=== PATIENT | male | born 1970 | race Caucasian/White ===

== ENCOUNTER 2018-09-10 10:06 | Inpatient (IN) ==
--- NOTE | 2018-09-10 18:18 | P.HP ---
History of Present Illness Primary Care Physician: Ambrosio Zavala MD Chief Complaint: Heart palpitation History of Present Illness: 48-year-old man with no significant past medical history went to [facility] for evaluation of 24-hour history of new onset of heart palpitations and chest tightness. Patient states after work yesterday he started noticing rapid heart racing and palpitations associated with chest tightness without any marylou chest pain. He was seen by his PCP who advised patient to seek medical attention to the ED. He denies any prior history. He also denies any trauma, tobacco use or illicit drug intake. He has no GI bleed. While in the ED, patient was found to be in A. fib with RVR for which he was started on Cardizem drip and transferred to [facility] for further evaluation. Inpatient Certification: I certify that the inpatient services were ordered in accordance with Medicare regulations governing the order. This includes certification that hospital inpatient services are reasonable and necessary and in the case of services not specified as inpatient-only under 42 CFR 419.22(n), that they are appropriately provided as inpatient services in accordance to with the 2-midnight benchmark under 43 CFR 412.3(e) Estimated Total Length of Stay (Days): 2 Plans for Post Hospital Care: Not yet determined Review of Systems All other systems reviewed negative except as stated in HPI PMFSH - History History Provided By: Patient - Medical History Medical History: Medical History (Last Reviewed 09/10/18 @ 10:37 by Jerry Prieto MD) Hx of tear of ACL (anterior cruciate ligament) Patient denies medical problems - Surgical History Surgical History: Surgical History (Last Reviewed 09/10/18 @ 10:37 by Jerry Priteo MD) Hx of knee surgery - Family History Family History: Family History (Last Updated 09/10/18 @ 18:59 by Garett Peterson MD) Other Hypertension - Tobacco History Smoking Status: Never smoker - Alcohol History How Often Do You Have a Drink Containing Alcohol: Monthly or less - Substance Use History Substance History: No History of Abuse Medications and Allergies Allergies Allergy/AdvReac Type Severity Reaction Status Date / Time No Known Allergies Allergy Verified 09/10/18 10:26 Home Medications Medication Instructions Recorded Confirmed Type No Known Home Medications 09/10/18 09/10/18 History Exam Narrative: GENERAL: NAD SKIN: Warm and dry. HEAD: Atraumatic. Normocephalic. EYES: Pupils equal and round. No scleral icterus. No injection or drainage. ENT: No nasal bleeding or discharge. Mucous membranes pink and moist. NECK: Trachea midline. No JVD. CARDIOVASCULAR: Irregular regular rate and rhythm. No heart murmur RESPIRATORY: No accessory muscle use. Clear to auscultation. Breath sounds equal bilaterally. GASTROINTESTINAL: Abdomen soft, non-tender, nondistended. Hepatic and splenic margins not palpable. MUSCULOSKELETAL: Extremities without clubbing, cyanosis, or edema. No obvious deformities. NEUROLOGICAL: Awake and alert. No obvious cranial nerve deficits. Motor grossly within normal limits. Five out of 5 muscle strength in the arms and legs. Normal speech. PSYCHIATRIC: Appropriate mood and affect; insight and judgment normal. Caprini VTE Risk Assessment Caprini VTE Risk Assessment: No/Low Risk (score <= 1) Caprini Risk Assessment Model: Point Value = 1 Point Value = 2 Point Value = 3 Point Value = 5 Age 41-60 Minor surgery BMI > 25 kg/m2 Swollen legs Varicose veins or History of unexplained or recurrent spontaneous Oral contraceptives or hormone replacement Sepsis (< 1 month) Serious lung disease, including pneumonia (< 1 month) Abnormal pulmonary function Acute myocardial infarction Congestive heart failure (< 1 month) History of inflammatory bowel disease Medical patient at bed rest Age 61-74 Arthroscopic surgery Major open surgery (> 45 min) Laparoscopic surgery (> 45 min) Malignancy Confined to bed (> 72 hours) Immobilizing plaster cast Central venous access Age >= 75 History of VTE Family history of VTE Factor V Leiden Prothrombin [id number] Lupus anticoagulant Anticardiolipin antibodies Elevated serum homocysteine Heparin-induced thrombocytopenia Other congenital or acquired thrombophilia Stroke (< 1 month) Elective arthroplasty Hip, pelvis, or leg fracture Acute spinal cord injury (< 1 month) Prophylaxis Regimen: Total Risk Factor Score Risk Level Prophylaxis Regimen 0-1 Low Early ambulation 2 Moderate Order ONE of the following: *Sequential Compression Device (SCD) *Heparin 5000 units SQ BID 3-4 Higher Order ONE of the following medications: *Heparin 5000 units SQ TID *Enoxaparin/Lovenox 40 mg SQ daily (WT < 150 kg, CrCl > 30 mL/min) *Enoxaparin/Lovenox 30 mg SQ daily (WT < 150 kg, CrCl > 10-29 mL/min) *Enoxaparin/Lovenox 30 mg SQ BID (WT < 150 kg, CrCl > 30 mL/min) AND/OR *Sequential Compression Device (SCD) 5 or more Highest Order ONE of the following medications: *Heparin 5000 units SQ TID (Preferred with Epidurals) *Enoxaparin/Lovenox 40 mg SQ daily (WT < 150 kg, CrCl > 30 mL/min) *Enoxaparin/Lovenox 30 mg SQ daily (WT < 150 kg, CrCl > 10-29 mL/min) *Enoxaparin/Lovenox 30 mg SQ BID (WT < 150 kg, CrCl > 30 mL/min) AND *Sequential Compression Device (SCD) Assessment and Plan - Plan 48-year-old man with New onset atrial fibrillation with RVR Currently on Cardizem drip Continue with ACS rule out per protocol with serial cardiac enzyme and EKGs Check 2D echo, lipid profile Rule out thyroid dysfunction with TSH and free T4 Consult cardiology for further evaluation Will start aspirin 81 mg daily DVT prophylaxis: Lovenox
[2018-09-10 20:27] LABS: Albumin 3.6 g/dL (3.4-5.0); Anion Gap 6 meq/L (5-15); Aspartate Aminotransferase 33 U/L (15-37); Blood Urea Nitrogen 13 mg/dL (7-18); Calcium 8.1 mg/dL (8.5-10.1); Carbon Dioxide 25.7 meq/L (21.0-32.0); Chloride 105 meq/L (98-107); Glomerular Filtration Rate 80 mL/min (>89); Glucose,Random 105 mg/dL (74-106); Magnesium 2.1 mg/dL (1.5-2.5); Potassium 3.6 meq/L (3.5-5.1); Sodium 137 meq/L (136-145)
[2018-09-10 20:29] LABS: Alanine Aminotransferase 42 U/L (12-78); T4 (Thyroxine) 5.9 mcg/dL (4.5-12.1)
[2018-09-10 20:38] LABS: Alkaline Phosphatase 78 U/L (45-117); Creatine Kinase 178 U/L (39-308); Total Protein 6.9 g/dL (6.4-8.2)
--- NOTE | 2018-09-10 21:14 | ECG ---
Date Performed: 09/10/2018 Time Performed: 19:42:41 PTAGE: 48 years EKG: ATRIAL FIBRILLATION POSSIBLE RIGHT VENTRICULAR CONDUCTION DELAY ABNORMAL RHYTHM ECG Since t he PREVIOUS TRACING , no significant change noted DOCTOR: Raoul Low Interpretating Date/Time 09/10/2018 21:13:45
[2018-09-10] MEDS ORDERED: dilTIAZem Inj 125 MG in Sodium Chlor 0.9% Inj 100 ML IV.CONT PRN (23:00)
[2018-09-11 08:09] LABS: Hematocrit 47.6 % (39.0-51.0); Hemoglobin 16.1 gm/dL (13.0-17.0); Mean Corpuscular HGB Conc 33.7 % (32.0-36.0); Mean Corpuscular Hemoglobin 30.3 pg (27.0-34.0); Mean Corpuscular Volume 89.8 fL (80.0-100.0); Mean Platelet Volume 9.3 fL (7.0-11.0); Platelet Count 216 th/mm3 (150-450); Red Cell Distribution Width 13.8 % (11.6-17.2); White Blood Count 7.4 th/mm3 (4.0-11.0)
[2018-09-11 08:35] LABS: Cholesterol 217 mg/dL (120-200); Triglycerides 256 mg/dL (42-150)
[2018-09-11 08:38] LABS: Chol/HDL Ratio 5.16 Ratio; Creatine Kinase 155 U/L (39-308); LDL Cholesterol,Calculated 124 mg/dL (0-99)
[2018-09-11] MEDS ORDERED: Enoxaparin Inj 40 MG/0.4 ML Syringe SQ SCH (09:00)
--- NOTE | 2018-09-11 10:58 | P.PNIM ---
Subjective Interval history: Says he feeling alright. Still with palpitations upon standing. Denies any chest pain. Physical Exam Vital signs: Vital Signs 09/10/18 19:54 09/10/18 20:00 09/10/18 23:53 Temperature 97.2 F L Pulse Rate 97 H 82 102 H Respiratory Rate 17 Blood Pressure 122/80 Pulse Oximetry 96 09/11/18 00:00 09/11/18 03:51 09/11/18 04:00 Temperature 98.0 F 97.8 F Pulse Rate 97 H 96 H 92 H Respiratory Rate 17 17 Blood Pressure 146/66 H 115/71 Pulse Oximetry 94 L 98 Intake & Output 09/10/18 09/11/18 09/11/18 18:59 06:59 18:59 Intake Total 0 / 0 Balance 0 / 0 Weight 108.1 kg Intake: Oral 0 / 0 Other: # Voids 1 # Bowel Movements 1 Weight On Admission 107.2 kg Narrative: GENERAL: Patient lying in bed. Appears comfortable. Oriented x3. SKIN: Warm and dry. HEAD: Normocephalic. EYES: No scleral icterus. No injection or drainage. NECK: Supple, trachea midline. No JVD. CARDIOVASCULAR: Irregularly irregular rhythm without murmurs, gallops, or rubs. RESPIRATORY: Breath sounds equal bilaterally. No accessory muscle use. GASTROINTESTINAL: Abdomen soft, non-tender, nondistended. MUSCULOSKELETAL: No cyanosis, or edema. BACK: Nontender without obvious deformity. No CVA tenderness. Results - Labs CBC & Chem 7: 09/11/18 06:15 09/10/18 19:15 Laboratory Results - last 24 hr 09/10/18 09/11/18 09/11/18 19:15 06:15 06:15 WBC 7.4 RBC 5.30 Hgb 16.1 Hct 47.6 MCV 89.8 MCH 30.3 MCHC 33.7 RDW 13.8 Plt Count 216 MPV 9.3 Sodium 137 Potassium 3.6 D Chloride 105 Carbon Dioxide 25.7 Anion Gap 6 BUN 13 Creatinine 1.00 Estimated GFR 80 L Random Glucose 105 Calcium 8.1 L Magnesium 2.1 Total Bilirubin 0.4 AST 33 ALT 42 Alkaline Phosphatase 78 Total Creatine Kinase 178 155 Troponin I Less than 0.02 L Less than 0.02 L Total Protein 6.9 D Albumin 3.6 Triglycerides 256 H Cholesterol 217 H LDL Cholesterol, Calc 124 H HDL Cholesterol 42.0 Cholesterol/HDL Ratio 5.16 TSH 2.480 Thyroxine (T4) 5.9 Assessment and Plan - Plan 48-year-old man with //New onset atrial fibrillation with RVR Currently on Cardizem drip Continue with ACS rule out per protocol with serial cardiac enzyme and EKGs Check 2D echo, lipid profile Rule out thyroid dysfunction with TSH and free T4 Consult cardiology for further evaluation Will start aspirin 81 mg daily = 09/11. Follow-up echocardiogram. Patient's heart rate between 90s and 130s. Have discussed with nursing and will increase drip rate on Cardizem to 10. Follow-up cardiology recommendations. Follow-up echocardiogram. Appreciate assistance. DVT prophylaxis: Lovenox Discussed Condition With: Patient, nurse. Discharge Planning: Pending stability in heart rate and cardiology clearance.
[2018-09-11] MEDS ORDERED: Sodium Chlor 0.9% Inj 500 ML IV.SIG SCH (11:00)
[2018-09-11] MEDS: Metoprolol Tartrate 50 MG Tablet PO SCH ×2 (11:17→20:37)
[2018-09-11 11:49] LABS: Amphetamine Screen,Urine Neg (Neg); Barbiturate Screen,Urine Neg (Neg); Cannabinoid Screen,Urine Neg (Neg); Cocaine Screen,Urine Neg (Neg)
[2018-09-11 11:50] LABS: Opiate Screen,Urine Neg (Neg)
--- NOTE | 2018-09-11 14:55 | P.CONCA ---
History of Present Illness Service: Cardiology Consult date: 09/11/18 Requesting Physician: Garett Peterson Reason for Consult: New onset atrial fibrillation with RVR Primary Care Provider: Ambrosio Zavala MD Chief Complaint: Heart palpitation History of Present Illness: This is a very pleasant 48-year-old male with no significant past medical history. On Sunday, while working, he developed palpitations with lightheadedness, mild shortness of breath and chest tightness. He worked the full day and went home to relax. He stated that the palpitations never went away but did get a little better. He stated, that he went to bed and when he woke up, he could feel his heart racing. He went to his PCP yesterday and was referred to the [facility] for further evaluation. While in the Emergency Department, he was found to be in atrial fibrillation with RVR and was started on a Cardizem drip and transferred here. He currently denies any CP, pressure, palpitations, dizziness, edema or SOB. Review of Systems All other systems reviewed negative except as stated in HPI PMFSH - History History Provided By: Patient - Medical History Medical History: Medical History (Last Reviewed 09/10/18 @ 10:37 by Jerry Prieto MD) Hx of tear of ACL (anterior cruciate ligament) Patient denies medical problems - Surgical History Surgical History: Surgical History (Last Reviewed 09/10/18 @ 10:37 by Jerry Prieto MD) Hx of knee surgery - Family History Family History: Family History (Last Updated 09/10/18 @ 18:59 by Garett Peterson MD) Other Hypertension - Tobacco History Second Hand Smoke Exposure: No Tobacco Use In Past 30 Days: No Smoking Status: Never smoker - Alcohol History How Often Do You Have a Drink Containing Alcohol: Monthly or less - Substance Use History Substance History: No History of Abuse - Immunization History Tetanus Immunization: >5 Years Hx Influenza Vaccine This Season: No Medications and Allergies Allergies Allergy/AdvReac Type Severity Reaction Status Date / Time No Known Allergies Allergy Verified 09/10/18 10:26 Home Medications Medication Instructions Recorded Confirmed Type No Known Home Medications 09/10/18 09/10/18 History Active Medications: Active Medications Albuterol (Duoneb Neb (Prn)) 1 ampul NEB Q2HR NEB PRN PRN Reason: SHORTNESS OF BREATH Aspirin (Aspirin Chew) 81 mg PO DAILY [facility] Last Admin: 09/11/18 10:44 Dose: 81 mg Enoxaparin Sodium (Lovenox Inj) 40 mg SQ Q24H [facility] Last Admin: 09/11/18 08:22 Dose: 40 mg Metoprolol Tartrate (Lopressor) 50 mg PO BID [facility] Last Admin: 09/11/18 11:17 Dose: 50 mg Sodium Chloride (Ns Flush) 2 ml IV.FLUSH PRN PRN PRN Reason: FLUSH AFTER USING IV ACCESS Sodium Chloride (Ns Flush) 2 ml IV.FLUSH BID [facility] Last Admin: 09/11/18 08:23 Dose: Not Given Exam Vital signs: Vital Signs 09/10/18 19:54 09/10/18 20:00 09/10/18 23:53 Temperature 97.2 F L Pulse Rate 97 H 82 102 H Respiratory Rate 17 Blood Pressure 122/80 Pulse Oximetry 96 09/11/18 00:00 09/11/18 03:51 09/11/18 04:00 Temperature 98.0 F 97.8 F Pulse Rate 97 H 96 H 92 H Respiratory Rate 17 17 Blood Pressure 146/66 H 115/71 Pulse Oximetry 94 L 98 09/11/18 08:00 09/11/18 11:30 09/11/18 12:00 Temperature 98.2 F Pulse Rate 74 75 66 Respiratory Rate 20 Blood Pressure 100/73 101/67 110/67 Pulse Oximetry 95 Intake & Output 09/10/18 09/11/18 09/11/18 18:59 06:59 18:59 Intake Total 0 / 0 500 / 500 Balance 0 / 0 500 / 500 Weight 108.1 kg Intake: IV 500 / 500 NS Inj 500 ML @ 1000 mls/hr IV. 500 / 500 SIG BOLUS [facility] Rx#:[id number] Oral 0 / 0 Other: # Voids 1 # Bowel Movements 1 Weight On Admission 107.2 kg - Constitutional no acute distress - Routine HEENT Exam Head: Present: normocephalic Eye: Present: PERRL ENT: Present: mucous membranes moist - Routine Neck Exam Present: full ROM - Routine Respiratory Exam Present: CTA bilaterally - Routine Cardiovascular Exam Present: S1, S2, tachycardia, irregular rhythm - Routine Abdominal Exam Present: normoactive bowel sounds - Routine Extremities Exam Present: full ROM, pulses intact, normal capillary refill. Absent: cyanosis, clubbing, edema - Routine Skin Exam Present: intact - Routine Neurological Exam Present: oriented X3 Results 09/11/18 06:15 09/10/18 19:15 Cardiac Enzymes 09/10/18 09/11/18 Range/Units 19:15 06:15 AST 33 (15-37) U/L Troponin I Less than 0.02 L Less than 0.02 L (0.02-0.05) ng/mL Lipids 09/11/18 Range/Units 06:15 Triglycerides 256 H (42-150) mg/dL Cholesterol 217 H (120-200) mg/dL HDL Cholesterol 42.0 (40.0-60.0) mg/dL Cholesterol/HDL Ratio 5.16 Ratio CBC 09/11/18 Range/Units 06:15 WBC 7.4 (4.0-11.0) th/mm3 RBC 5.30 (4.50-5.90) mil/mm3 Hgb 16.1 (13.0-17.0) gm/dL Hct 47.6 (39.0-51.0) % Plt Count 216 (150-450) th/mm3 Comprehensive Metabolic Panel 09/10/18 Range/Units 19:15 Sodium 137 (136-145) meq/L Potassium 3.6 D (3.5-5.1) meq/L Chloride 105 (98-107) meq/L Carbon Dioxide 25.7 (21.0-32.0) meq/L BUN 13 (7-18) mg/dL Creatinine 1.00 (0.60-1.30) mg/dL Calcium 8.1 L (8.5-10.1) mg/dL AST 33 (15-37) U/L ALT 42 (12-78) U/L Alkaline Phosphatase 78 (45-117) U/L Total Protein 6.9 D (6.4-8.2) g/dL Albumin 3.6 (3.4-5.0) g/dL Intake and Output 09/10/18 09/11/18 09/11/18 22:59 06:59 14:59 Intake Total 0 / 0 500 / 500 Balance 0 / 0 500 / 500 Intake: IV 500 / 500 NS Inj 500 ML @ 1000 mls/hr IV. 500 / 500 SIG [facility] Rx#:[id number] Oral 0 / 0 Other: # Voids 1 # Bowel Movements 1 Weight 107.2 kg 108.1 kg Weight On Admission 107.2 kg Assessment and Plan - Assessment (1) New onset atrial fibrillation Code(s): I48.91 - Unspecified atrial fibrillation Status: Acute - Plan CHADVAS is 0, patient has new onset atrial fibrillation, we will switch patient over to Xarelto 20mg PO QD and D/C all other anticoagulation. Patient has hyperlipidemia, we will start patient on Pravastatin 40mg PO QD. We will obtain a 2D echo to evaluate LV function. Continue to monitor on telemetry. Continue rate control with metoprolol, add digoxin (BP low nl). Discussed treatment plan with patient and , at bedside. We will continue to monitor patient during hospitalization. The patient was seen and evaluated by Dr. Low who participated in care, management and decision making. - Attending Attestation Patient seen and examined. I reviewed and agree with the evaluation and plan as presented. Continue and titrate rate control. Start anticoagulation. Check echo. D/w pt and .
--- NOTE | 2018-09-11 17:57 | ECHRPT ---
Indication: Persistent atrial fibrillation CONCLUSIONS Normal left ventricular size and wall thickness. The left ventricular systolic function is normal wi th an estimated ejection fraction in the range of 60-65%. Left ventricular diastolic function parameters a re normal. BP: / HR: Rhythm: Sinus MEASUREMENTS (Male / Female) Normal Values Technical Quality:Fair 2D ECHO LV Diastolic Diameter PLAX 4.3 cm 4.2 - 5.9 / 3.9 - 5.3 cm LV Systolic Diameter PLAX 3.1 cm IVS Diastolic Thickness 1.1 cm 0.6 - 1.0 / 0.6 - 0.9 cm LVPW Diastolic Thickness 1.1 cm 0.6 - 1.0 / 0.6 - 0.9 cm LV Relative Wall Thickness 0.5 LVOT Diameter 2.1 cm M-MODE Aortic Root Diameter MM 3.3 cm LA Systolic Diameter MM 3.2 cm LA Ao Ratio MM 1.0 AV Cusp Separation MM 1.6 cm DOPPLER AV Peak Velocity 107.0 cm/s AV Peak Gradient 4.6 mmHg LVOT Peak Velocity 77.5 cm/s LVOT Peak Gradient 2.4 mmHg AV Area Cont Eq pk 2.5 cm LV E' Septal Velocity 1.2 cm/s PV Peak Velocity 86.9 cm/s PV Peak Gradient 3.0 mmHg FINDINGS LEFT VENTRICLE Normal left ventricular size and wall thickness. The left ventricular systolic function is normal wi th an estimated ejection fraction in the range of 60-65%. Left ventricular diastolic function parameters a re normal. RIGHT VENTRICLE Normal right ventricular size and systolic function. LEFT ATRIUM The left atrial size is normal. RIGHT ATRIUM The right atrial size is normal. ATRIAL SEPTUM Normal atrial septal thickness without atrial level shunting by limited color doppler interrogation. AORTA The aortic root and proximal ascending aorta are normal in size on limited imaging. MITRAL VALVE Structurally normal mitral valve. No mitral valve stenosis or regurgitation. AORTIC VALVE Trileaflet aortic valve. No aortic valve stenosis or regurgitation. TRICUSPID VALVE Structurally normal tricuspid valve. No tricuspid valve stenosis or regurgitation. PULMONARY VALVE The pulmonary valve is not well visualized. VESSELS The inferior vena cava is normal in size. PERICARDIUM No pericardial effusion. Edmundo Singleton MD, FACC, FSCAI (Electronically Signed) Final Date:11 September 2018 17:56
[2018-09-11] MEDS: Digoxin 250 MCG Tablet PO SCH (18:04)
[2018-09-11] MEDS: Rivaroxaban 20 MG Tablet PO SCH (20:38)
[2018-09-12 01:17] VITALS: RESP 18
[2018-09-12 09:13] VITALS: O2SAT 99
[2018-09-12] MEDS: Rivaroxaban 20 MG Tablet PO SCH (09:23)
[2018-09-12] MEDS: Metoprolol Tartrate 50 MG Tablet PO SCH (09:23)
[2018-09-12] MEDS: Digoxin 250 MCG Tablet PO SCH (09:23)
--- NOTE | 2018-09-12 11:27 | P.PNCA ---
Subjective Interval history: Patient denies any CP, pressure, palpitations, dizziness or edema. Patient states that he is having mild SOB. Medications and Allergies Allergies Allergy/AdvReac Type Severity Reaction Status Date / Time No Known Allergies Allergy Verified 09/10/18 10:26 Home Medications Medication Instructions Recorded Confirmed Type No Known Home Medications 09/10/18 09/10/18 History Active Medications: Active Medications Albuterol (Duoneb Neb (Prn)) 1 ampul NEB Q2HR NEB PRN PRN Reason: SHORTNESS OF BREATH Digoxin (Lanoxin) 250 mcg PO DAILY [facility] Last Admin: 09/12/18 09:23 Dose: 250 mcg Metoprolol Tartrate (Lopressor) 50 mg PO BID [facility] Last Admin: 09/12/18 09:23 Dose: 50 mg Pravastatin Sodium (Pravachol) 40 mg PO DAILY [facility] Last Admin: 09/12/18 09:23 Dose: 40 mg Rivaroxaban (Xarelto) 20 mg PO DAILY [facility] Last Admin: 09/12/18 09:23 Dose: 20 mg Sodium Chloride (Ns Flush) 2 ml IV.FLUSH PRN PRN PRN Reason: FLUSH AFTER USING IV ACCESS Sodium Chloride (Ns Flush) 2 ml IV.FLUSH BID [facility] Last Admin: 09/12/18 09:24 Dose: 2 ml Physical Exam Vital signs: Vital Signs 09/11/18 11:30 09/11/18 12:00 09/11/18 16:00 Temperature 97.4 F L 97.5 F L Pulse Rate 75 79 102 H Respiratory Rate 20 20 Blood Pressure 101/67 106/65 141/79 H Pulse Oximetry 94 L 97 09/11/18 20:00 09/11/18 23:35 09/12/18 00:00 Temperature 97.7 F 97.7 F Pulse Rate 115 H 88 80 Respiratory Rate 18 18 Blood Pressure 128/82 122/92 H Pulse Oximetry 96 97 97 09/12/18 04:00 09/12/18 08:00 Temperature 97.9 F 98.1 F Pulse Rate 82 83 Respiratory Rate 18 18 Blood Pressure 107/87 129/83 Pulse Oximetry 95 99 Intake & Output 09/11/18 09/12/18 09/12/18 18:59 06:59 18:59 Intake Total 890 / 890 460 / 460 Balance 890 / 890 460 / 460 Weight 108.3 kg Intake: IV 650 / 650 Cardizem Inj 125 MG In NS Inj 150 / 150 100 ML @ 5 MG/HR 5 mls/hr IV. CONT TITRATE PRN Rx#:[id number] NS Inj 500 ML @ 1000 mls/hr IV. 500 / 500 SIG [facility] Rx#:[id number] Oral 240 / 240 460 / 460 Other: # Voids 2 2 # Bowel Movements 1 - Constitutional no acute distress - Routine HEENT Exam Head: Present: normocephalic Eye: Present: PERRL ENT: Present: mucous membranes moist - Routine Neck Exam Present: full ROM - Routine Respiratory Exam Present: CTA bilaterally - Routine Cardiovascular Exam Present: S1, S2, irregular rhythm - Routine Abdominal Exam Present: normoactive bowel sounds - Routine Extremities Exam Present: full ROM, pulses intact, normal capillary refill. Absent: cyanosis, clubbing, edema - Routine Skin Exam Present: intact - Routine Neurological Exam Present: oriented X3 - Detailed Neurological Exam: Coma Scale Eye Opening: Spontaneous Verbal Response: Oriented Motor Response: Obey commands [place] Coma Scale Total: 15 - Routine Psychiatric Exam Present: normal affect Results 09/11/18 06:15 09/10/18 19:15 Cardiac Enzymes 09/10/18 09/11/18 Range/Units 19:15 06:15 AST 33 (15-37) U/L Troponin I Less than 0.02 L Less than 0.02 L (0.02-0.05) ng/mL Lipids 09/11/18 Range/Units 06:15 Triglycerides 256 H (42-150) mg/dL Cholesterol 217 H (120-200) mg/dL HDL Cholesterol 42.0 (40.0-60.0) mg/dL Cholesterol/HDL Ratio 5.16 Ratio CBC 09/11/18 Range/Units 06:15 WBC 7.4 (4.0-11.0) th/mm3 RBC 5.30 (4.50-5.90) mil/mm3 Hgb 16.1 (13.0-17.0) gm/dL Hct 47.6 (39.0-51.0) % Plt Count 216 (150-450) th/mm3 Comprehensive Metabolic Panel 09/10/18 Range/Units 19:15 Sodium 137 (136-145) meq/L Potassium 3.6 D (3.5-5.1) meq/L Chloride 105 (98-107) meq/L Carbon Dioxide 25.7 (21.0-32.0) meq/L BUN 13 (7-18) mg/dL Creatinine 1.00 (0.60-1.30) mg/dL Calcium 8.1 L (8.5-10.1) mg/dL AST 33 (15-37) U/L ALT 42 (12-78) U/L Alkaline Phosphatase 78 (45-117) U/L Total Protein 6.9 D (6.4-8.2) g/dL Albumin 3.6 (3.4-5.0) g/dL Intake and Output 09/11/18 09/12/18 09/12/18 22:59 06:59 14:59 Intake Total 240 / 240 460 / 460 Balance 240 / 240 460 / 460 Intake: Oral 240 / 240 460 / 460 Other: # Voids 2 2 # Bowel Movements 1 Weight 108.3 kg Assessment and Plan - Assessment (1) New onset atrial fibrillation Code(s): I48.91 - Unspecified atrial fibrillation Status: Acute - Plan Patient remains in atrial fibrillation with a mostly controlled VR. There are no signs of bleeding at this time, we will continue anticoagulation with Xarelto. We will continue rate control with metoprolol and digoxin, add diltiazem. 2D echo was obtained, patient's EF is 60-65% with normal LV function. Patient can be cleared for discharge from a cardiology standpoint. Patient is to continue Xarelto at home until further notice. We will continue to monitor patient during hospitalization. Patient to follow up in office in 1-2 weeks, if patient is still in atrial fibrillation, we will schedule a cardioversion. The patient was seen and evaluated by Dr. Low who participated in care, management and decision making. - Attending Attestation Patient seen and examined. I reviewed and agree with the evaluation and plan as presented. Continue and titrate rate control. Continue Xarelto. DC home. DC cardioversion in 3 weeks. D/w pt and .
[2018-09-12] MEDS ORDERED: dilTIAZem CD 120 MG Capsule PO SCH (12:30)
[2018-09-12 13:30] VITALS: BP 102/63; PULSE 53; TEMP 97.6
--- NOTE | 2018-09-12 14:36 | P.DS ---
Date of admission: 09/10/18 16:17 Primary care physician: Ambrosio Zavala MD Brief History from admission: 48-year-old man with no significant past medical history went to [facility] ED for evaluation of 24-hour history of new onset of heart palpitations and chest tightness. Patient states after work yesterday he started noticing rapid heart racing and palpitations associated with chest tightness without any marylou chest pain. He was seen by his PCP who advised patient to seek medical attention to the ED. He denies any prior history. He also denies any trauma, tobacco use or illicit drug intake. He has no GI bleed. While in the ED, patient was found to be in A. fib with RVR for which he was started on Cardizem drip and transferred to [facility] for further evaluation. DS: Summary Hospital Course: 1. Atrial for ablation with rapid ventricular rate This patient is a 48-year-old male with no known past medical history. Patient went to the [facility] emergency department for evaluation of a 1 day history of palpitations and chest tightness. Patient was found to be in atrial fibrillation with rapid ventricular rate. Patient was started on a Cardizem drip. Cardiac intensive troponins were ordered which were negative. An echocardiogram was done which showed ejection fraction of 60%. No other significant abnormalities found on echo. EKG showed atrial for ablation with rapid ventricular rate. Cardiology was consulted to evaluate the patient. He was started on a Cardizem drip and then transitioned to p.o. Cardizem. A beta- selvin was also started. His heart rate is now under control. Cardiology recommends continuing Cardizem, beta-selvin, digoxin, Xarelto on discharge. Medication scripts were given to the patient prior to his discharge. The risks and benefits of being on anti-correlation were discussed with the patient and he agrees to continue anticoagulate him. The patient will need to follow-up with cardiology in 2 weeks, if the patient is still in atrial fibrillation they will schedule cardioversion as per their documentation. - Time Spent with Patient Total time spent providing and/or coordinating discharge services: Greater than 30 minutes - Quality: VTE Deep Vein Thrombosis/Pulmonary Embolism Present on Admission: No Exam Vital signs: Vital Signs 09/11/18 16:00 09/11/18 20:00 09/11/18 23:35 Temperature 97.5 F L 97.7 F 97.7 F Pulse Rate 102 H 115 H 88 Respiratory Rate 20 18 18 Blood Pressure 141/79 H 128/82 122/92 H Pulse Oximetry 97 96 97 09/12/18 00:00 09/12/18 04:00 09/12/18 08:00 Temperature 97.9 F 98.1 F Pulse Rate 80 82 150 H Respiratory Rate 18 18 Blood Pressure 107/87 129/83 Pulse Oximetry 97 95 99 09/12/18 12:00 Temperature 97.6 F Pulse Rate 53 L Respiratory Rate 18 Blood Pressure 102/63 Pulse Oximetry 99 Intake & Output 09/11/18 09/12/18 09/12/18 18:59 06:59 18:59 Intake Total 890 / 890 460 / 460 Balance 890 / 890 460 / 460 Weight 108.3 kg Intake: IV 650 / 650 Cardizem Inj 125 MG In NS Inj 150 / 150 100 ML @ 5 MG/HR 5 mls/hr IV. CONT TITRATE PRN Rx#:[id number] NS Inj 500 ML @ 1000 mls/hr IV. 500 / 500 SIG BOLUS LEIGHA Rx#:[id number] Oral 240 / 240 460 / 460 Other: # Voids 2 2 # Bowel Movements 1 Narrative: General patient in no acute distress HEENT extraocular movements are intact, clear oropharyngeal mucosa, no JVD Cardiovascular S1-S2 audible, irregularly irregular rhythm. Respiratory clear to auscultation bilaterally Abdomen soft, nontender, nondistended, normal bowel sounds Extremities no edema 2+ distal pulses in bilateral upper and lower extremities Neuro cranial nerves II through XII intact Results Procedures completed during hospitalization: None Discharge Plan - Discharge Disposition Patient Disposition: Discharge Home - Discharge Condition Condition: Stable - Discharge Order Discharge Orders: Discharge Order (Routine); Ordered 09/12/18 Ordered By: Valerie Bonilla - Physicians Team Primary Care Provider: Ambrosio Zavala Attending Provider: Valerie Bonilla Other Providers: Raoul Low MD - Rxs /Orders / Referrals /Forms Prescriptions: New digoxin 250 mcg Tablet 250 mcg PO DAILY Qty: 30 RF: 0 diltiazem HCl 120 mg Capsule,Extended Release 24hr 120 mg PO DAILY Qty: 30 RF: 0 metoprolol tartrate 50 mg Tablet 50 mg PO BID Qty: 60 RF: 0 pravastatin 40 mg Tablet 40 mg PO DAILY Qty: 30 RF: 0 rivaroxaban [Xarelto] 20 mg Tablet 20 mg PO DAILY Qty: 30 RF: 0 No Action No Known Home Medications Referrals: Ambrosio Zavala MD [Primary Care Provider] - See Instructions Raoul Low MD [Physician] - See Instructions
== END 2018-09-12 17:17 | disposition home or self-care (01) | DRG 310 ==
LOC: NEDDLT 10:06 → N04 16:17
PROVIDERS: ADMIT Hospitalist; ATTEND Hospitalist
CPT/HCPCS: 71010; 71045; 80053; 80061; 80307; 82550; 83520; 83735; 83880; 84436; 84443; 84484; 85025; 85027; 90772; 90774; 90782; 90784; 93005; 93306; 96372; 96374; 99291; C8952; J1650; J7040